=== PATIENT | female | born 1975 | race Caucasian/White ===

== ENCOUNTER 2020-07-26 17:28 | Emergency (ER) | payer OTHER ==
[2020-07-26] MEDS ORDERED: MOBIC15 MG PO (20:05)
[2020-07-26] MEDS ORDERED: CYCLOBENZAPRINE5 MG PO (20:05)
== END 2020-07-26 20:15 | disposition home or self-care (01) ==
LOC: ER1 17:28
DX: S09.90XA Unspecified injury of head, initial encounter (principal); S16.1XXA Strain of muscle, fascia and tendon at neck level, initial encounter; S76.011A Strain of muscle, fascia and tendon of right hip, initial encounter; S39.012A Strain of muscle, fascia and tendon of lower back, initial encounter; S46.911A Strain of unspecified muscle, fascia and tendon at shoulder and upper arm level, right arm, initial encounter; I10 Essential (primary) hypertension; V49.40XA Driver injured in collision with unspecified motor vehicles in traffic accident, initial encounter; Y92.410 Unspecified street and highway as the place of occurrence of the external cause
CPT/HCPCS: 70450; 70486; 72100; 72125; 73030; 73502; 99284